=== PATIENT | female | born 1995 | race Caucasian/White ===

== ENCOUNTER 2025-03-04 18:35 | Inpatient (IN) | payer MEDICAID ==
[~2025-03-04] VITALS: Ht 162.6 cm; Wt 60.3 kg
[2025-03-04 19:10] LABS: PLATELET COUNT (AUTO) 330 K/uL (150-450); RED BLOOD CELL COUNT(AUTO) 4.97 MIL/uL (4.0-5.2); RED CELL DISTRIBUTION WIDTH 14.0 % (11.5-15.0); WHITE BLOOD COUNT (AUTO) 9.3 K/uL (4.3-11.0)
[2025-03-04] MEDS: IV NS 0.9% 1,000 ML BAG IV ONE (19:23)
[2025-03-04 19:33] LABS: APPEARANCE,URINE SLIGHTLY CLOUDY (CLEAR); BLOOD, URINE 1+ Ery/uL (NEGATIVE); LEUKOCYTE ESTERASE ,URINE 2+ (NEGATIVE); NITRITE, URINE NEGATIVE (NEGATIVE); UGLUCOSE NEGATIVE (NEGATIVE)
[2025-03-04 19:33] LABS: CALCIUM, SERUM 9.0 mg/dL (8.5-10.1); CREATININE 0.8 mg/dL (0.6-1.3); SODIUM SERUM 141 mmol/L (136-145); UREA NITROGEN, BLOOD 14 mg/dL (7-18)
[2025-03-04 19:37] LABS: ALCOHOL, BLOOD < 3 mg/dL (0-10); ASPARTATE AMINOTRANSFERASE 16 U/L (15-37); TOTAL PROTEIN, SERUM 8.0 g/dL (6.4-8.2)
[2025-03-04 19:39] LABS: ADD URINE CULTURE YES
[2025-03-04 19:51] LABS: AMPHETAMINE, URINE NEGATIVE (NEGATIVE); BARBITURATE, URINE NEGATIVE (NEGATIVE); BENZODIAZEPINE, URINE NEGATIVE (NEGATIVE); CANNABINOID, URINE NEGATIVE (NEGATIVE); COCCAINE, URINE NEGATIVE (NEGATIVE); OPIATE, URINE NEGATIVE (NEGATIVE)
[2025-03-04 21:30] VITALS: BP 108/69; TEMP 98.8; O2SAT 97
[2025-03-04] MEDS ORDERED: ACETAMINOPHEN 325 MG TABLET PO PRN (21:30)
[2025-03-04] MEDS ORDERED: MAG HYDROX/AL HYDROX/SIMETH 30 ML UDC PO PRN (21:30)
[2025-03-04] MEDS ORDERED: Z GUARD REMEDY 4 OZ OINT TP PRN (21:30)
[2025-03-04] MEDS ORDERED: MAGNESIUM HYDROXIDE 30 ML UDC PO PRN (21:30)
[2025-03-05] VITALS: BP 98/69; TEMP 98.4; O2SAT 97
[2025-03-05] MEDS ORDERED: CEPHALEXIN MONOHYDRATE 500 MG CAPSULE PO ONE (01:19)
[2025-03-05] MEDS: CEPHALEXIN MONOHYDRATE 250 MG CAPSULE PO SCH (01:35)
[2025-03-05 04:00] VITALS: BP 103/68; TEMP 98.2; O2SAT 98
[2025-03-05] MEDS: CEPHALEXIN MONOHYDRATE 500 MG CAPSULE PO SCH (06:58)
[2025-03-05 07:36] LABS: PLATELET COUNT (AUTO) 314 K/uL (150-450); RED BLOOD CELL COUNT(AUTO) 4.63 MIL/uL (4.0-5.2); RED CELL DISTRIBUTION WIDTH 14.0 % (11.5-15.0); WHITE BLOOD COUNT (AUTO) 9.7 K/uL (4.3-11.0)
[2025-03-05 07:50] LABS: CALCIUM, SERUM 8.9 mg/dL (8.5-10.1); CREATININE 0.7 mg/dL (0.6-1.3); SODIUM SERUM 142.0 mmol/L (136-145); UREA NITROGEN, BLOOD 14.0 mg/dL (7-18)
[2025-03-05 08:00] VITALS: BP 113/75; TEMP 98.6; O2SAT 97
[2025-03-05] MEDS: ONDANSETRON HCL/PF 4 MG/2 ML VIAL IVP PRN (09:01)
[2025-03-05 12:00] VITALS: BP 115/71; TEMP 98.8; O2SAT 97
[2025-03-05] MEDS: ESCITALOPRAM OXALATE (10 MG) 10 MG TABLET PO SCH (12:52)
[2025-03-05 16:00] VITALS: BP 114/77; TEMP 98.6; O2SAT 97
[2025-03-05 20:00] VITALS: BP 111/75; TEMP 98.8; O2SAT 98
[2025-03-05 20:30] LABS: PREGNANCY TEST URINE QUAL NEGATIVE (NEGATIVE)
[2025-03-06] VITALS: BP 117/81; TEMP 99; O2SAT 97
[2025-03-06 04:00] VITALS: BP 111/81; TEMP 98.4; O2SAT 96
[2025-03-06 07:48] LABS: PLATELET COUNT (AUTO) 315 K/uL (150-450); RED BLOOD CELL COUNT(AUTO) 4.73 MIL/uL (4.0-5.2); RED CELL DISTRIBUTION WIDTH 13.8 % (11.5-15.0); WHITE BLOOD COUNT (AUTO) 7.0 K/uL (4.3-11.0)
[2025-03-06 07:55] LABS: CALCIUM, SERUM 8.8 mg/dL (8.5-10.1); CREATININE 0.8 mg/dL (0.6-1.3); SODIUM SERUM 142.0 mmol/L (136-145); UREA NITROGEN, BLOOD 18.0 mg/dL (7-18)
[2025-03-06 08:00] VITALS: BP 111/75; TEMP 98.6; O2SAT 96
[2025-03-06 12:00] VITALS: BP 104/74; TEMP 98.6; O2SAT 96
[2025-03-06 16:00] VITALS: BP 117/77; TEMP 98.6; O2SAT 95
[2025-03-06 20:00] VITALS: BP 117/81; TEMP 98.1; O2SAT 97
[2025-03-07] VITALS: BP 109/74; TEMP 98.6; O2SAT 98
[2025-03-07 04:00] VITALS: BP 105/75; TEMP 98.2; O2SAT 98
[2025-03-07 08:00] VITALS: BP 106/68; TEMP 98.2; O2SAT 98
[2025-03-07 12:00] VITALS: BP 113/74; TEMP 98.6; O2SAT 99
[2025-03-07 16:00] VITALS: BP 72/74; TEMP 98.9; O2SAT 99
[2025-03-07 20:00] VITALS: BP 115/79; TEMP 98.2; O2SAT 96
[2025-03-08 04:00] VITALS: BP 106/82; TEMP 98.2; O2SAT 98
[2025-03-08 08:00] VITALS: BP 107/64; TEMP 98.1; O2SAT 98
== END 2025-03-08 15:24 | DRG 817 ==
LOC: ER 18:43 → MEDSG1 20:53 → TELE-TD 22:23 → TELE1 03-06 11:46 → MEDSG1 03-07 17:47
PROVIDERS: ADMIT Registered Nurse Psychiatric/Mental Health; ATTEND Registered Nurse Psychiatric/Mental Health
DX: T43.222A Poisoning by selective serotonin reuptake inhibitors, intentional self-harm, initial encounter (principal); F33.2 Major depressive disorder, recurrent severe without psychotic features; Y92.009 Unspecified place in unspecified non-institutional (private) residence as the place of occurrence of the external cause; N39.0 Urinary tract infection, site not specified; F41.9 Anxiety disorder, unspecified
CPT/HCPCS: 36415; 80048-TC; 80076-TC; 81001; 82962-TC; 84703-TC; 85025-TC; 87086-TC; G0378; G0480; J2405; J7030